=== PATIENT | male | born 1945 | race Asian ===

== ENCOUNTER 2024-07-07 14:57 | Emergency (ER) | payer MEDICARE ==
[~2024-07-07] VITALS: Ht 172.7 cm; Wt 90.0 kg
[2024-07-07 15:32] VITALS: BP 153/84
[2024-07-07] MEDS ORDERED: Diph, Acellular Pertussis, Tet 0.5 ML/VIAL (Tdap) SDV IM ONE (15:40)
[2024-07-07 15:45] VITALS: BP 150/94
[2024-07-07 16:00] VITALS: BP 139/91
[2024-07-07] MEDS ORDERED: BACITRACIN ZINC 0.9 GM/PAK EX ONE (16:45)
[2024-07-07] MEDS ORDERED: MUPIROCIN2 % EX (16:46)
[2024-07-07] MEDS ORDERED: TRAMADOL HYDROC50 M1 PO (16:46)
[2024-07-07 16:53] VITALS: BP 139/91
[2024-07-07] MEDS ORDERED: NEOMYCIN-BACITRACIN-POLYMYXIN 0.5 GM/PAK PAK TOP ONE (17:00)
== END 2024-07-07 17:05 | disposition home or self-care (01) ==
LOC: ED 14:57
PROC: 0HQGXZZ Repair Left Hand Skin, External Approach (ICD-10-PCS; principal; 2024-07-07)
DX: S61.215A Laceration without foreign body of left ring finger without damage to nail, initial encounter (principal); W26.8XXA Contact with other sharp object(s), not elsewhere classified, initial encounter; Y92.009 Unspecified place in unspecified non-institutional (private) residence as the place of occurrence of the external cause; I10 Essential (primary) hypertension
CPT/HCPCS: 90715